=== PATIENT | male | born 1955 | race Caucasian/White ===

== ENCOUNTER 2024-02-20 16:00 | Emergency (ER) | payer OTHER, SELFPAY ==
--- NOTE | ~2024-02-20 | XR_ITS ---
XR ankle RT min 3V Ordering provider: Gita Mistry APRN History: . FALL IN A HOLE, GEN SWELLING, MEDIAL MALLEOLUS PAIN . Comparison: None. FINDINGS: BONES: No acute fracture or dislocation. JOINT SPACES: Normal. SOFT TISSUES: Soft tissue swelling over the medial and lateral malleoli. IMPRESSION: No acute osseous abnormality of the right ankle. Soft tissue swelling medially and laterally. Reviewed, dictated and finalized at location A. [facility]
[2024-02-20 16:16] VITALS: BP 125/78; PULSE 88; RESP 16; TEMP 36.6; O2SAT 100
--- NOTE | 2024-02-20 16:44 | ED_ITS ---
HPI - Extremity Injury (Lower) General Chief Complaint: Extremity Injury, Lower Stated Complaint: Fall Injury/Right Ankle Time Seen by Provider: 02/20/24 16:44 Source: patient Mode of arrival: wheelchair Limitations: no limitations History of Present Illness HPI Narrative: 68-year-old male presented for complaint of right ankle pain and swelling after injury today. 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 Has been able to bear weight on the right leg. Endorses bruising to the lower leg. Also endorses chronic bilateral lower extremity swelling and states the right ankle might be more swollen than normal. He states he has had extensive workup but water pills do not work for him so he is not taking anything for the swelling. Currently denies chest pain and shortness of breath. Related Data Home Medications ?Medication ?Instructions ?Recorded ?Confirmed ?Last Taken ?Type No Home Medications 02/20/24 Unknown History Allergies Allergy/AdvReac Type Severity Reaction Status Date / Time No Known Allergies Allergy Verified 02/20/24 16:19 Review of Systems Review of Systems: CONSTITUTIONAL: Denies body aches, fever, chills CARDIOVASCULAR: Denies chest pain, palpitations, or edema. RESPIRATORY: Denies cough or dyspnea. GASTROINTESTINAL: Denies abdominal pain, nausea, vomiting, or diarrhea. SKIN: Denies rash, itching, or wounds. MUSCULOSKELETAL: reports right ankle pain NEUROLOGIC: Denies numbness, tingling, or weakness. All systems reviewed & are unremarkable except as noted in HPI and below PMFSH Past Medical History Medical History (Updated 02/20/24 @ 17:19 by Gita Mistry, OTILIO) Leg swelling Comments At time of signature, I have reviewed and agree with nursing past medical, surgical, social and family history unless otherwise noted. Please see nursing chart for further information. There is no relevant family history pertinent to the presenting complaint Exam Narrative: GENERAL: Well-appearing CHEST: Speaks in full sentences. No respiratory distress. HEART: Regular rate and rhythm. Normal and equal peripheral pulses. EXTREMITIES: bilateral lower extremity edema 3+. Right foot has normal strength and sensation, slightly limited range of motion of ankle due to endorses pain with movement. area of ecchymosis distal tibia approx 3cm diameter, No point tenderness. No open wounds, or obvious deformity; alignment normal, pulse palpable and equal bilaterally, skin warm, dry, pink. Capillary refill less than 3 seconds. SKIN: Warm, dry NEURO: Alert and oriented x3. PSYCH: Normal mood and affect Course Course Emergency Course: Patient is aware of diagnosis, understands and agrees to treatment plan. Anticipatory guidance given. Patient agrees to follow-up as directed and is aware of reasons to seek care at the emergency department. Portions of this record may have been created with voice recognition software Level of Care: Express Care Visit Vital Signs Vital signs: Vital Signs Temperature 97.8 F 02/20/24 16:16 Pulse Rate 88 02/20/24 16:16 Respiratory Rate 16 02/20/24 16:16 Blood Pressure 125/78 02/20/24 16:16 Pulse Oximetry 100 02/20/24 16:16 Oxygen Delivery Room Air 02/20/24 16:16 Temperature 97.8 F 02/20/24 16:16 Pulse Rate 88 02/20/24 16:16 Respiratory Rate 16 02/20/24 16:16 Blood Pressure 125/78 02/20/24 16:16 Pulse Oximetry 100 02/20/24 16:16 Oxygen Delivery Room Air 02/20/24 16:16 Reviewed MDM - Extremity Injury (Lower) MDM Narrative Medical decision making narrative: Discussed physical exam findings and xray. Navarro wrap applied.. Advised supportive measures and signs/symptoms to go to the ER. Pt is appropriate for outpt treatment and f/u. Differential Diagnosis Differential diagnosis: Likely ankle sprain and strain and ankle fracture Imaging Data Radiologist's impression: Patient: Star Nava : 1955 MR#: [id number] Age: 68 Acct:[id number] Loc: [facility] ADM Date: 02/20/24Attending Dr: Ordering Physician: Gita Mistry APRN Date of Service: 02/20/24 Procedure(s): XR ankle RT min 3V Accession Number(s): [id number] cc: Gita Mistry APRN; ULTRASOUND SONOGRAPHER PHYSICIAN~ XR ankle RT min 3V Ordering provider: Gita Mistry APRN History: . FALL IN A HOLE, GEN SWELLING, MEDIAL MALLEOLUS PAIN . Comparison: None. FINDINGS: BONES: No acute fracture or dislocation. JOINT SPACES: Normal. SOFT TISSUES: Soft tissue swelling over the medial and lateral malleoli. IMPRESSION: No acute osseous abnormality of the right ankle. Soft tissue swelling medially and laterally. Discharge Plan Discharge Clinical Impression: Ankle sprain and strain Patient Disposition: Home, Self-Care Condition: Stable Instructions: Antibiotic Form, Ankle Sprain (ED) Additional Instructions: Rest and elevate the right leg; bear weight as tolerated Apply ice 15-20 minute intervals several times a day Keep it wrapped with NAVARRO or use a soft ankle splint Tylenol 1000mg every 8 hours as needed. Avoid NSAIDs due to the swelling Follow up with your primary care provider in 1-2 weeks Go to the ER for worsening symptoms or concerns Patient Language: Irish Prescriptions: No Action No Home Medications Follow-up/Referrals: PHYSICIAN,ULTRASOUND SONOGRAPHER [Primary Care Provider] -
== END 2024-02-20 17:25 | disposition home or self-care (01) ==
PROVIDERS: Emergency Provider Nurse Practitioner Family
DX: S93.401A Sprain of unspecified ligament of right ankle, initial encounter (principal); S96.911A Strain of unspecified muscle and tendon at ankle and foot level, right foot, initial encounter; W00.0XXA Fall on same level due to ice and snow, initial encounter
CPT/HCPCS: 73610; 99203; G0463